=== PATIENT | male | born 1980 | race Caucasian/White ===

== ENCOUNTER 2018-09-17 23:23 | Emergency (ER) | payer MEDICARE, OTHER ==
[2018-09-17 23:23] VITALS: BMI 23.3
--- NOTE | 2018-09-18 00:11 | C.PDOC ---
History Of Present Illness 38 year old male with PMHx of HIV, cardiac stents HTN, mental illness, depression, anxiety, polysubstance abuse presents to the ED for evaluation of bizarre behavior after being found in a motel room after doing IV crystal meth. Patient had same presentation last week when he was seen at [facility]. Patient was hallucinating and delusional. After several days in the hospital on the psychiatric unit patient was discharged when he cleared of delusions and hallucinations. While in the ED patient is in no physical distress, patient is actively hallucinating speaking in Moroccan and Slovenian to no one in the room. Patient having flight of ideas and rambling nonsense. Patient able to answer some questions clearly. Time Seen by Provider: 09/17/18 23:43 Chief Complaint (Nursing): Substance Abuse History Per: Patient History/Exam Limitations: intoxication Onset/Duration Of Symptoms: Hrs Current Symptoms Are (Timing): Still Present Modifying Factor(s): Other (Crystal meth) Associated Symptoms: Paranoia. denies: Depression, Suicidal Thoughts, Suicidal Plan Recent travel outside of the [place]: No Additional History Per: Patient Past Medical History Reviewed: Historical Data, Nursing Documentation, Vital Signs Vital Signs: Last Vital Signs Temp 98.6 F 09/17/18 23:26 Pulse 122 H 09/17/18 23:26 Resp 24 09/17/18 23:26 BP 167/127 H 09/17/18 23:26 Pulse Ox 100 09/17/18 23:26 - Medical History PMH: Anxiety, Bipolar Disorder, CAD, Depression, HTN, Hypercholesterolemia, Post Traumatic Stress Disorder Denies: Diabetes, Hepatitis, HIV, Chronic Kidney Disease, Seizures, Sexually Transmitted Disease Surgical History: Coronary Stent (x3) Denies: Pacemaker - [facility] Procedures CORONAR ARTERIOGR-2 CATH (02/08/15) INDIVIDUAL PSYCHOTHERAPY, SUPPORTIVE (12/11/15) INJECT/INFUSE ELECTROLYT (05/30/15) INJECT/INFUSE NEC (05/30/15) INSERTION OF ONE VASCULAR STENT (02/08/15) INSERTION OF TWO VASCULAR STENTS (02/21/15) INSRT OF DRUG-ELUTING CORON ARTERY STENTS(S) (02/21/15) LEFT HEART CARDIAC CATH (02/08/15) LT HEART ANGIOCARDIOGRAM (02/08/15) OTHER SKIN & SUBQ I D (07/28/14) PERCUTANEOUS TRANSLUMINAL CORONARY ANGIOPLASTY [PTCA] (02/21/15) PROCEDURE ON SINGLE VESSEL (02/21/15) Family History: States: Unknown Family Hx - Social History Hx Tobacco Use: Yes Hx Alcohol Use: No Hx Substance Use: Yes - Immunization History Hx Tetanus Toxoid Vaccination: No Hx Influenza Vaccination: No Hx Pneumococcal Vaccination: No Review Of Systems Review Of Systems: ROS cannot be obtained secondary to pt's inabilty to answer questions. (intoxication) Physical Exam - Physical Exam Appears: Non-toxic, Other (hallucinating) Skin: Normal Color, Warm, Dry Head: Atraumatic, Normacephalic Eye(s): bilateral: Normal Inspection Neck: Normal ROM, Supple Chest: Symmetrical Cardiovascular: Rhythm Regular (tachycardic) Respiratory: Normal Breath Sounds, No Rales, No Rhonchi, No Wheezing Gastrointestinal/Abdominal: Soft, No Tenderness, No Guarding, No Rebound Extremity: Normal ROM, No Tenderness, No Swelling Neurological/Psych: Other (actively hallucinating, able to answer some questions) Gait: Unable To Assess ED Course And Treatment O2 Sat by Pulse Oximetry: 100 (On RA) Pulse Ox Interpretation: Normal Medical Decision Making Medical Decision Making: Plan: * Labs * UA Disposition - Disposition Disposition Time: 00:50 Condition: STABLE Forms: [employer] [employer] (Moroccan) - Clinical Impression Clinical Impression: Drug abuse, Drug-induced psychotic disorder with delusions - Scribe Statement The provider has reviewed the documentation as recorded by the Scribe Loki Umana All medical record entries made by the Scribe were at my direction and personally dictated by me. I have reviewed the chart and agree that the record accurately reflects my personal performance of the history, physical exam, medical decision making, and the department course for this patient. I have also personally directed, reviewed, and agree with the discharge instructions and disposition. Physician Patient Turnover Patient Signed Over To: Susi Claros Handoff Comments: pending psychiatric evaluation and medical clearance
[2018-09-18 01:42] LABS: BASO # 0.1 K/uL (0.0-0.2); BASO % 1.2 % (0.0-2.0); EOS % 0.3 % (0.0-4.0); HEMOGLOBIN 15.6 g/dL (12.0-18.0); LYMPH # 3.1 K/uL (1.0-4.3); MEAN CELL VOLUME 91.2 fL (80.0-94.0); MEAN CORPUSCULAR HGB CONC 35.1 g/dL (33.0-37.0); MEAN PLATELET VOLUME 8.6 fL (7.2-11.7); MONO # 1.1 K/uL (0.0-0.8); MONO % 8.9 % (0.0-10.0); NEUT # 8.1 K/uL (1.8-7.0); NEUT % 64.6 % (50.0-75.0); NRBC % 0.1 % (0.0-2.0); RBC 4.88 Mil/uL (4.40-5.90); RED CELL DISTRIBUTION WIDTH 13.3 % (11.5-14.5); WHITE BLOOD COUNT 12.5 K/uL (4.8-10.8)
[2018-09-18 01:53] LABS: ALB/GLOB RATIO 1.5 (1.0-2.1); ALBUMIN 5.3 g/dL (3.5-5.0); ALT/SGPT 42 U/L (21-72); AST/SGOT 70 U/L (17-59); BLOOD UREA NITROGEN 26 mg/dL (9-20); CALCIUM 10.4 mg/dl (8.6-10.4); GFR NON-AFRICAN AMERICAN > 60
[2018-09-18 04:48] LABS: BARBITURATES, UR NEGATIVE (NEGATIVE); BENZODIAZEPINES, UR NEGATIVE (NEGATIVE); OPIATES, UR NEGATIVE (NEGATIVE); PHENCYCLIDINE, UR NEGATIVE (NEGATIVE); SPERM URINE OCC /hpf; URINE BILIRUBIN NEGATIVE (NEGATIVE); URINE BLOOD NEGATIVE (NEGATIVE); URINE CLARITY Hazy (Clear); URINE COLOR Yellow (YELLOW); URINE GLUCOSE (UA) NORMAL (Normal); URINE LEUKOCYTE ESTERASE NEG Leu/uL (Negative); URINE PROTEIN 1+ mg/dL (NEGATIVE); URINE UROBILINOGEN NORMAL mg/dL (0.2-1.0)
[2018-09-18 07:23] VITALS: BP 169/99; PULSE 110; RESP 18; TEMP 98.8; O2SAT 98
== END 2018-09-18 08:20 | disposition home or self-care (01) ==
LOC: C.ER 23:23
DX: F19.959 Other psychoactive substance use, unspecified with psychoactive substance-induced psychotic disorder, unspecified (principal); I10 Essential (primary) hypertension; I25.10 Atherosclerotic heart disease of native coronary artery without angina pectoris; E78.00 Pure hypercholesterolemia, unspecified; F31.9 Bipolar disorder, unspecified; Z95.5 Presence of coronary angioplasty implant and graft; F17.210 Nicotine dependence, cigarettes, uncomplicated
CPT/HCPCS: 80053; 81001; 83735; 84100; 85025; 99285; G0480

== ENCOUNTER 2019-01-08 16:21 | Emergency (ER) | payer OTHER ==
[2019-01-08 16:21] VITALS: BMI 23.3
--- NOTE | 2019-01-08 16:50 | C.PDOC ---
History Of Present Illness Patient is a 38 year old male, azul, who presents to the ED after being brought in from a car wash for public intoxications, foaming at the mouth, ranting, bizarre behavior, and speaking to himself. Patient has had many prior visits with similar presentations for drug induced psychosis after smoking crystal meth. Further HPI unobtainable due to patient's condition. <Luiz Reynaga E - Last Filed: 01/08/19 20:24> <Jenny Thornton - Last Filed: 01/08/19 16:38> History Per: Patient, EMS History/Exam Limitations: None Onset/Duration Of Symptoms: Hrs Current Symptoms Are (Timing): Still Present Additional History Per: Patient, EMS <Luiz Reynaga - Last Filed: 01/08/19 20:24> Time Seen by Provider: 01/08/19 16:38 Chief Complaint (Nursing): Altered Mental Status Past Medical History - Medical History PMH: Anxiety, Bipolar Disorder, CAD, Depression, HIV, HTN, Hypercholesterolemia, Post Traumatic Stress Disorder Denies: Diabetes, Hepatitis, Chronic Kidney Disease, Seizures, Sexually Transmitted Disease Surgical History: Coronary Stent (x3) Denies: Pacemaker - [facility] Procedures CORONAR ARTERIOGR-2 CATH (02/08/15) INDIVIDUAL PSYCHOTHERAPY, SUPPORTIVE (12/11/15) INJECT/INFUSE ELECTROLYT (05/30/15) INJECT/INFUSE NEC (05/30/15) INSERTION OF ONE VASCULAR STENT (02/08/15) INSERTION OF TWO VASCULAR STENTS (02/21/15) INSRT OF DRUG-ELUTING CORON ARTERY STENTS(S) (02/21/15) LEFT HEART CARDIAC CATH (02/08/15) LT HEART ANGIOCARDIOGRAM (02/08/15) OTHER SKIN & SUBQ I D (07/28/14) PERCUTANEOUS TRANSLUMINAL CORONARY ANGIOPLASTY [PTCA] (02/21/15) PROCEDURE ON SINGLE VESSEL (02/21/15) Family History: States: Unknown Family Hx - Social History Hx Tobacco Use: Yes Hx Alcohol Use: No Hx Substance Use: Yes - Immunization History Hx Tetanus Toxoid Vaccination: No Hx Influenza Vaccination: No Hx Pneumococcal Vaccination: No <Jenny Thornton - Last Filed: 01/08/19 16:38> Reviewed: Historical Data, Nursing Documentation, Vital Signs Vital Signs: Last Vital Signs Temp 98.1 F 01/08/19 19:10 Pulse 104 H 01/08/19 19:14 Resp 14 01/08/19 19:14 BP 95/49 L 01/08/19 19:14 Pulse Ox 97 01/08/19 19:14 - [facility] Procedures CORONAR ARTERIOGR-2 CATH (02/08/15) INDIVIDUAL PSYCHOTHERAPY, SUPPORTIVE (12/11/15) INJECT/INFUSE ELECTROLYT (05/30/15) INJECT/INFUSE NEC (05/30/15) INSERTION OF ONE VASCULAR STENT (02/08/15) INSERTION OF TWO VASCULAR STENTS (02/21/15) INSRT OF DRUG-ELUTING CORON ARTERY STENTS(S) (02/21/15) LEFT HEART CARDIAC CATH (02/08/15) LT HEART ANGIOCARDIOGRAM (02/08/15) OTHER SKIN & SUBQ I D (07/28/14) PERCUTANEOUS TRANSLUMINAL CORONARY ANGIOPLASTY [PTCA] (02/21/15) PROCEDURE ON SINGLE VESSEL (02/21/15) <Luiz Reynaga - Last Filed: 01/08/19 20:24> Review Of Systems Review Of Systems: ROS cannot be obtained secondary to pt's inabilty to answer questions. <Luiz Reynaga - Last Filed: 01/08/19 20:24> Physical Exam - Physical Exam Appears: Non-toxic, Other (bizarre, thrashing, fighting off staff ) Skin: Warm, Dry Head: Atraumatic, Normacephalic Eye(s): bilateral: Other (dilated pupils ) Oral Mucosa: Moist Chest: Symmetrical, No Deformity Cardiovascular: Rhythm Regular, No Murmur Respiratory: Normal Breath Sounds, No Rales, No Rhonchi, No Wheezing Extremity: Normal ROM <Luiz Reynaga - Last Filed: 01/08/19 20:24> ED Course And Treatment - Laboratory Results Result Diagrams: 01/08/19 17:35 01/08/19 17:35 Lab Results: Total Bilirubin 0.4 mg/dL (0.2-1.3) 01/08/19 17:35 AST 28 U/L (17-59) 01/08/19 17:35 ALT 13 U/L (21-72) L D 01/08/19 17:35 Alkaline Phosphatase 56 U/L (38-126) 01/08/19 17:35 Total Protein 8.1 g/dL (6.3-8.3) 01/08/19 17:35 Albumin 5.1 g/dL (3.5-5.0) H 01/08/19 17:35 Globulin 3.0 gm/dL (2.2-3.9) 01/08/19 17:35 Albumin/Globulin Ratio 1.7 (1.0-2.1) 01/08/19 17:35 Urine Color Yellow (YELLOW) 01/08/19 17:35 Urine Clarity Hazy (Clear) 01/08/19 17:35 Urine pH 5.0 (5.0-8.0) 01/08/19 17:35 Ur Specific Mor[place] 1.027 (1.003-1.030) 01/08/19 17:35 Urine Protein 1+ mg/dL (NEGATIVE) H 01/08/19 17:35 Urine Glucose (UA) Normal mg/dL (Normal) 01/08/19 17:35 Urine Ketones Trace mg/dL (NEGATIVE) 01/08/19 17:35 Urine Blood Negative (NEGATIVE) 01/08/19 17:35 Urine Nitrate Negative (NEGATIVE) 01/08/19 17:35 Urine Bilirubin Negative (NEGATIVE) 01/08/19 17:35 Urine Urobilinogen Normal mg/dL (0.2-1.0) 01/08/19 17:35 Ur Leukocyte Esterase Neg Jon/uL (Negative) 01/08/19 17:35 Urine WBC (Auto) 4 /hpf (0-5) 01/08/19 17:35 Urine RBC (Auto) 4 /hpf (0-3) H 01/08/19 17:35 Amorphous Sediment Few /ul (<OCC) H 01/08/19 17:35 Urine Bacteria Occ (<OCC) H 01/08/19 17:35 Hyaline Casts 11-20 /lpf (0-2) H 01/08/19 17:35 ECG: Interpreted By Me, Viewed By Me ECG Rhythm: Sinus Tachycardia Rate From EC O2 Sat by Pulse Oximetry: 100 Pulse Ox Interpretation: Normal - Other Rad CXR X-Ray: Viewed By Me, Read By Radiologist Interpretation: IMPRESSION: No focal consolidation, significant pleural effusion, or definite pneumothorax identified. Reevaluation Time: 20:23 Reassessment Condition: Improved (clinically sober, wants d/c to street,) <Luiz Reynaga E - Last Filed: 01/08/19 20:24> Medical Decision Making Medical Decision Making: Plan: EKG Labs CXR Ativan 2mg IM Geodan 20mg IM IV Fluids Code hernandez called. 4 point restraints given. Multiple rounds of fluid boluses. Patient gradually improving. At 19:20, patient is alert, awake, and oriented. "I smoke crystal meth about once a month for entertainment's sake" <Luiz Reynaga - Last Filed: 01/08/19 20:24> Disposition <Jenny Thornton M - Last Filed: 01/08/19 16:38> Doctor Will See Patient In The: Office Counseled Patient/Family Regarding: Studies Performed, Diagnosis - Disposition Disposition Time: 20:23 <Luiz Reynaga - Last Filed: 01/08/19 20:24> - Disposition Disposition: HOME/ ROUTINE Condition: GOOD Forms: [employer] (Armenian) - Clinical Impression Clinical Impression: Methamphetamine abuse - Scribe Statement The provider has reviewed the documentation as recorded by the Scribrosemarie Conn All medical record entries made by the Scribe were at my direction and personally dictated by me. I have reviewed the chart and agree that the record accurately reflects my personal performance of the history, physical exam, medical decision making, and the department course for this patient. I have also personally directed, reviewed, and agree with the discharge instructions and disposition. <Luiz Reynaga E - Last Filed: 01/08/19 20:24>
[2019-01-08] MEDS ORDERED: Sodium Chloride 0.9% 1,000 ML IV ONE ×3 (16:51→18:50)
[2019-01-08] MEDS ORDERED: Sodium Chloride 0.9% 1,000 ML ONE (17:26)
[2019-01-08 17:41] LABS: BASO # 0.1 K/uL (0.0-0.2); BASO % 0.8 % (0.0-2.0); EOS % 0.1 % (0.0-4.0); HEMOGLOBIN 15.7 g/dL (12.0-18.0); LYMPH # 2.4 K/uL (1.0-4.3); MEAN CORPUSCULAR HEMOGLOBIN 31.8 pg (27.0-31.0); MEAN CORPUSCULAR HGB CONC 34.2 g/dL (33.0-37.0); MEAN PLATELET VOLUME 7.6 fL (7.2-11.7); MONO # 0.7 K/uL (0.0-0.8); MONO % 6.1 % (0.0-10.0); NEUT # 8.2 K/uL (1.8-7.0); RBC 4.94 Mil/uL (4.40-5.90); RED CELL DISTRIBUTION WIDTH 13.3 % (11.5-14.5); WHITE BLOOD COUNT 11.4 K/uL (4.8-10.8)
--- NOTE | 2019-01-08 17:41 | RAD ---
HISTORY: Detox/Psy COMPARISON: None available. TECHNIQUE: Chest, one view. FINDINGS: LUNGS: No focal consolidation. Please note that chest x-ray has limited sensitivity for the detection of pulmonary masses. PLEURA: No significant pleural effusion identified. No definite pneumothorax . CARDIOVASCULAR: The cardiomediastinal silhouette appears within normal limits of size. No significant atherosclerotic calcification present. OSSEOUS STRUCTURES: No acute osseous abnormality identified. VISUALIZED UPPER ABDOMEN: Unremarkable. OTHER FINDINGS: None. IMPRESSION: No focal consolidation, significant pleural effusion, or definite pneumothorax identified.
[2019-01-08 17:45] LABS: MEAN CELL VOLUME 93.2 fL (80.0-94.0)
[2019-01-08 17:55] LABS: ACETAMINOPHEN < 10.0 ug/mL (10.0-30.0); SALICYLATE < 1.0 mg/dL 1; URINE AMORPHOUS SEDIMENT FEW /ul (<OCC); URINE BACTERIA OCC (<OCC); URINE BILIRUBIN NEGATIVE (NEGATIVE); URINE BLOOD NEGATIVE (NEGATIVE); URINE CLARITY Hazy (Clear); URINE COLOR Yellow (YELLOW); URINE GLUCOSE (UA) NORMAL (Normal); URINE LEUKOCYTE ESTERASE NEG Leu/uL (Negative); URINE PROTEIN 1+ mg/dL (NEGATIVE); URINE UROBILINOGEN NORMAL mg/dL (0.2-1.0)
[2019-01-08 17:57] LABS: ALB/GLOB RATIO 1.7 (1.0-2.1); ALBUMIN 5.1 g/dL (3.5-5.0); ALT/SGPT 13 U/L (21-72); AST/SGOT 28 U/L (17-59); BLOOD UREA NITROGEN 27 mg/dL (9-20); CALCIUM 10.9 mg/dl (8.6-10.4); GFR NON-AFRICAN AMERICAN > 60
[2019-01-08 18:10] LABS: BARBITURATES, UR NEGATIVE (NEGATIVE); BENZODIAZEPINES, UR NEGATIVE (NEGATIVE); OPIATES, UR NEGATIVE (NEGATIVE); PHENCYCLIDINE, UR NEGATIVE (NEGATIVE)
[2019-01-08 20:33] VITALS: BP 106/68; PULSE 81; RESP 16; TEMP 98.2; O2SAT 97
--- NOTE | 2019-01-11 19:35 | CARD ---
APPROVED REPORT Date of service: 01/08/2019 EKG Measurement Heart [id number] <Conclusion> Sinus tachycardia Biatrial enlargement Septal infarct, age undetermined Lateral infarct, age undetermined ST & T wave abnormality, consider inferior ischemia Abnormal ECG
== END 2019-01-08 20:33 | disposition home or self-care (01) ==
LOC: C.ER 16:21
DX: F15.10 Other stimulant abuse, uncomplicated (principal)
CPT/HCPCS: 71045; 80053; 81001; 82948; 83735; 84100; 85025; 93005; 96360; 96361; 96372; 99285; G0480; J2060; J3486; J7030